=== PATIENT | female | born 1950 | race Two or more races ===

== ENCOUNTER 2017-07-14 09:01 | Outpatient (CLI) | payer OTHER ==
[~2017-07-14 09:01] MED LIST: DICLOFENAC POTA50 MG PO; MAXIMUM D310000 UNIT PO; SYNTHROID137 MCG; SYNTHROID137 MCG PO; VITAMINA D3; ZOCOR20 MG
== END 2017-07-14 14:42 | disposition home or self-care (01) ==
LOC: SONOGRAMA 09:01 → MAMO-SONO 09:15 → SONOGRAMA 14:42
DX: E03.8 Other specified hypothyroidism (principal); E07.89 Other specified disorders of thyroid

== ENCOUNTER 2017-07-28 07:19 | Outpatient (CLI) | payer OTHER | END 2017-07-28 07:25 | disposition home or self-care (01) | LOC: LAB 07:19 | DX: E03.8 Other specified hypothyroidism (principal); E11.65 Type 2 diabetes mellitus with hyperglycemia; D68.8 Other specified coagulation defects; E55.9 Vitamin D deficiency, unspecified; D64.89 Other specified anemias ==

== ENCOUNTER 2018-01-12 07:43 | Outpatient (CLI) | payer OTHER | END 2018-01-12 07:50 | disposition home or self-care (01) | LOC: LAB 07:43 | DX: E11.65 Type 2 diabetes mellitus with hyperglycemia (principal); D68.8 Other specified coagulation defects; D64.89 Other specified anemias; E78.2 Mixed hyperlipidemia; E03.8 Other specified hypothyroidism ==

== ENCOUNTER 2018-06-14 13:32 | Outpatient (CLI) | payer OTHER | END 2018-06-14 14:31 | disposition home or self-care (01) | LOC: NUCLEAR 13:32 | DX: M81.0 Age-related osteoporosis without current pathological fracture (principal) ==

== ENCOUNTER 2018-08-30 07:32 | Outpatient (CLI) | payer OTHER | END 2018-08-30 07:34 | disposition home or self-care (01) | LOC: MAMO-SONO 07:32 | DX: Z12.31 Encounter for screening mammogram for malignant neoplasm of breast (principal); Z87.898 Personal history of other specified conditions; N64.89 Other specified disorders of breast; J45.998 Other asthma ==

== ENCOUNTER 2019-03-24 11:03 | Outpatient (CLI) | payer OTHER | END 2019-03-24 11:06 | disposition home or self-care (01) | LOC: SONOGRAMA 11:03 | DX: E03.8 Other specified hypothyroidism (principal); E04.2 Nontoxic multinodular goiter ==

== ENCOUNTER 2019-12-12 07:41 | Outpatient (CLI) | payer OTHER | END 2019-12-12 07:48 | disposition home or self-care (01) | LOC: SONOGRAMA 07:41 → MAMO-SONO 08:15 | PROVIDERS: ATTEND Specialist | DX: K75.81 Nonalcoholic steatohepatitis (NASH) (principal) ==

== ENCOUNTER 2019-12-21 17:04 | Inpatient (IN) | payer OTHER ==
[~2019-12-21] VITALS: Ht 154.9 cm; Wt 65.8 kg
[2019-12-21] MEDS ORDERED: LEVOTHYROXINE112 MCG PO (17:36)
== END 2019-12-26 16:40 | disposition home or self-care (01) | DRG 439 ==
LOC: ER 17:04 → SEC-K 23:25 → SURG 23:25
PROVIDERS: ADMIT Specialist; ATTEND Specialist
PROC: BW21ZZZ Computerized Tomography (CT Scan) of Abdomen and Pelvis (ICD-10-PCS; principal; 2019-12-21)
PROC: BT43ZZZ Ultrasonography of Bilateral Kidneys (ICD-10-PCS; 2019-12-21)
PROC: BF35ZZZ Magnetic Resonance Imaging (MRI) of Liver (ICD-10-PCS; 2019-12-23)
PROC: 4A033R1 Measurement of Arterial Saturation, Peripheral, Percutaneous Approach (ICD-10-PCS; 2019-12-23)
DX: K85.80 Other acute pancreatitis without necrosis or infection (principal); B37.41 Candidal cystitis and urethritis; E03.8 Other specified hypothyroidism; D51.0 Vitamin B12 deficiency anemia due to intrinsic factor deficiency; R31.9 Hematuria, unspecified; R16.2 Hepatomegaly with splenomegaly, not elsewhere classified; Z03.818 Encounter for observation for suspected exposure to other biological agents ruled out

== ENCOUNTER 2020-01-01 08:14 | Outpatient (CLI) | payer OTHER ==
[~2020-01-01 08:14] MED LIST changes: +LEVOTHYROXINE112 MCG PO
== END 2020-01-01 08:33 | disposition home or self-care (01) ==
LOC: LAB 08:14
PROVIDERS: ATTEND Specialist
DX: D68.8 Other specified coagulation defects (principal); K85.90 Acute pancreatitis without necrosis or infection, unspecified; N39.0 Urinary tract infection, site not specified; B15.9 Hepatitis A without hepatic coma; B16.1 Acute hepatitis B with delta-agent without hepatic coma; K75.81 Nonalcoholic steatohepatitis (NASH); B20 Human immunodeficiency virus [HIV] disease; D68.62 Lupus anticoagulant syndrome; D64.89 Other specified anemias

== ENCOUNTER 2020-03-08 07:14 | Outpatient (CLI) | payer OTHER | END 2020-03-08 08:09 | disposition home or self-care (01) | LOC: LAB 07:14 | PROVIDERS: ATTEND Specialist | DX: M32.8 Other forms of systemic lupus erythematosus (principal); I01.1 Acute rheumatic endocarditis; K75.81 Nonalcoholic steatohepatitis (NASH) ==

== ENCOUNTER → 2020-03-21 07:43 | Outpatient (CLI) | payer OTHER | END | disposition home or self-care (01) | LOC: LAB 07:43 | PROVIDERS: ATTEND Internal Medicine Gastroenterology | DX: K85.80 Other acute pancreatitis without necrosis or infection (principal); R10.13 Epigastric pain; R11.0 Nausea ==

== ENCOUNTER 2020-06-11 07:28 | Outpatient (CLI) | payer OTHER | END 2020-06-11 15:00 | disposition home or self-care (01) | LOC: LAB 07:28 | PROVIDERS: ATTEND Specialist | DX: E03.8 Other specified hypothyroidism (principal); D64.89 Other specified anemias; N39.0 Urinary tract infection, site not specified; K85.90 Acute pancreatitis without necrosis or infection, unspecified; E11.65 Type 2 diabetes mellitus with hyperglycemia; E55.9 Vitamin D deficiency, unspecified; D51.0 Vitamin B12 deficiency anemia due to intrinsic factor deficiency ==

== ENCOUNTER 2020-07-18 12:23 | Emergency (ER) | payer OTHER ==
[~2020-07-18] VITALS: Ht 154.9 cm; Wt 68.0 kg
[2020-07-18] MEDS ORDERED: CELEBREX200MG PO (15:16)
== END 2020-07-18 15:33 | disposition home or self-care (01) ==
LOC: ER 12:23
DX: M25.542 Pain in joints of left hand (principal); M25.541 Pain in joints of right hand

== ENCOUNTER 2020-09-05 07:20 | Outpatient (CLI) | payer OTHER ==
[~2020-09-05 07:20] MED LIST changes: +CELEBREX200MG PO
== END 2020-09-05 07:24 | disposition home or self-care (01) ==
LOC: LAB 07:20
PROVIDERS: ATTEND Specialist
DX: M32.8 Other forms of systemic lupus erythematosus (principal)

== ENCOUNTER 2020-09-13 13:09 | Outpatient (CLI) | payer OTHER | END 2020-09-13 13:10 | disposition home or self-care (01) | LOC: NUCLEAR 13:09 | PROVIDERS: ATTEND Specialist | DX: M81.0 Age-related osteoporosis without current pathological fracture (principal) ==

== ENCOUNTER → 2020-10-02 | Outpatient (CLI) | payer OTHER | END | disposition home or self-care (01) | LOC: SONOGRAMA 13:30 → MAMO-SONO 10-09 13:45 | DX: M25.50 Pain in unspecified joint (principal); M85.89 Other specified disorders of bone density and structure, multiple sites; M06.4 Inflammatory polyarthropathy; Z79.899 Other long term (current) drug therapy; E55.9 Vitamin D deficiency, unspecified; M54.5 Low back pain ==

== ENCOUNTER → 2020-10-25 06:49 | Outpatient (CLI) | payer OTHER | END | disposition home or self-care (01) | LOC: LAB 06:49 | PROVIDERS: ATTEND Internal Medicine Rheumatology | DX: M06.4 Inflammatory polyarthropathy (principal); M25.50 Pain in unspecified joint; M85.89 Other specified disorders of bone density and structure, multiple sites; Z79.899 Other long term (current) drug therapy; E55.9 Vitamin D deficiency, unspecified ==

== ENCOUNTER 2020-12-13 07:14 | Outpatient (CLI) | payer OTHER | END 2020-12-13 15:00 | disposition home or self-care (01) | LOC: LAB 07:14 | PROVIDERS: ATTEND Specialist | DX: E03.8 Other specified hypothyroidism (principal); E11.65 Type 2 diabetes mellitus with hyperglycemia; N39.0 Urinary tract infection, site not specified; E78.2 Mixed hyperlipidemia; D64.89 Other specified anemias; D51.0 Vitamin B12 deficiency anemia due to intrinsic factor deficiency ==

== ENCOUNTER 2020-12-17 10:32 | Outpatient (CLI) | payer OTHER | END 2020-12-17 10:40 | disposition home or self-care (01) | LOC: MAMO-SONO 10:32 | PROVIDERS: ATTEND Specialist | DX: E04.1 Nontoxic single thyroid nodule (principal); E03.8 Other specified hypothyroidism ==

== ENCOUNTER 2021-01-07 07:31 | Outpatient (CLI) | payer OTHER | END 2021-01-07 07:49 | disposition home or self-care (01) | LOC: LAB 07:31 | PROVIDERS: ATTEND Internal Medicine Rheumatology | DX: M32.19 Other organ or system involvement in systemic lupus erythematosus (principal); M35.89 Other specified systemic involvement of connective tissue; I25.10 Atherosclerotic heart disease of native coronary artery without angina pectoris; M06.8A Other specified rheumatoid arthritis, other specified site ==

== ENCOUNTER → 2021-03-12 06:56 | Outpatient (CLI) | payer OTHER | END | disposition home or self-care (01) | LOC: LAB 06:56 | PROVIDERS: ATTEND Specialist | DX: E11.21 Type 2 diabetes mellitus with diabetic nephropathy (principal); E11.65 Type 2 diabetes mellitus with hyperglycemia ==

== ENCOUNTER 2021-04-08 07:46 | Outpatient (CLI) | payer OTHER | END 2021-04-08 07:47 | disposition home or self-care (01) | LOC: LAB 07:46 | PROVIDERS: ATTEND Internal Medicine Rheumatology | DX: M32.19 Other organ or system involvement in systemic lupus erythematosus (principal) ==

== ENCOUNTER 2021-05-15 07:10 | Outpatient (CLI) | payer OTHER | END 2021-05-15 07:21 | disposition home or self-care (01) | LOC: LAB 07:10 | PROVIDERS: ATTEND Internal Medicine Rheumatology | DX: K74.3 Primary biliary cirrhosis (principal); K75.4 Autoimmune hepatitis ==

== ENCOUNTER 2021-05-15 07:36 | Outpatient (CLI) | payer OTHER | END 2021-05-15 07:41 | disposition home or self-care (01) | LOC: RAD 07:36 | PROVIDERS: ATTEND Internal Medicine Rheumatology | DX: I10 Essential (primary) hypertension (principal); M32.8 Other forms of systemic lupus erythematosus ==

== ENCOUNTER 2021-06-16 07:11 | Outpatient (CLI) | payer OTHER | END 2021-06-16 09:20 | disposition home or self-care (01) | LOC: LAB 07:11 | PROVIDERS: ATTEND Specialist | DX: E03.9 Hypothyroidism, unspecified (principal); N39.9 Disorder of urinary system, unspecified; E78.2 Mixed hyperlipidemia; E11.65 Type 2 diabetes mellitus with hyperglycemia; Z12.11 Encounter for screening for malignant neoplasm of colon; D64.9 Anemia, unspecified; J45.998 Other asthma; K75.9 Inflammatory liver disease, unspecified ==

== ENCOUNTER 2021-06-17 13:52 | Outpatient (CLI) | payer OTHER | END 2021-06-17 13:53 | disposition home or self-care (01) | LOC: LAB 13:52 | PROVIDERS: ATTEND Specialist | DX: E03.9 Hypothyroidism, unspecified (principal); N39.9 Disorder of urinary system, unspecified; E78.2 Mixed hyperlipidemia; E11.65 Type 2 diabetes mellitus with hyperglycemia; Z12.11 Encounter for screening for malignant neoplasm of colon; D64.9 Anemia, unspecified; J45.998 Other asthma ==

== ENCOUNTER 2021-08-01 06:55 | Outpatient (CLI) | payer OTHER | END 2021-08-01 07:02 | disposition home or self-care (01) | LOC: LAB 06:55 | PROVIDERS: ATTEND Internal Medicine Rheumatology | DX: M32.19 Other organ or system involvement in systemic lupus erythematosus (principal) ==

== ENCOUNTER 2021-09-16 07:06 | Outpatient (CLI) | payer OTHER | END 2021-09-16 07:15 | disposition home or self-care (01) | LOC: LAB 07:06 | PROVIDERS: ATTEND Specialist | DX: C25.3 Malignant neoplasm of pancreatic duct (principal); M32.10 Systemic lupus erythematosus, organ or system involvement unspecified; K75.81 Nonalcoholic steatohepatitis (NASH); N25.81 Secondary hyperparathyroidism of renal origin ==

== ENCOUNTER 2021-11-05 07:05 | Outpatient (CLI) | payer OTHER | END 2021-11-05 15:17 | disposition home or self-care (01) | LOC: LAB 07:05 | PROVIDERS: ATTEND Internal Medicine Rheumatology | DX: M06.9 Rheumatoid arthritis, unspecified (principal); M32.19 Other organ or system involvement in systemic lupus erythematosus; D68.61 Antiphospholipid syndrome; M35.00 Sjogren syndrome, unspecified ==

== ENCOUNTER 2021-12-23 07:20 | Outpatient (CLI) | payer OTHER | END 2021-12-23 07:21 | disposition home or self-care (01) | LOC: LAB 07:20 | DX: E03.8 Other specified hypothyroidism (principal); E11.69 Type 2 diabetes mellitus with other specified complication; E11.21 Type 2 diabetes mellitus with diabetic nephropathy; N39.9 Disorder of urinary system, unspecified; D64.89 Other specified anemias; E11.65 Type 2 diabetes mellitus with hyperglycemia; Z13.220 Encounter for screening for lipoid disorders ==

== ENCOUNTER 2021-12-25 07:45 | Outpatient (CLI) | payer OTHER | END 2021-12-25 07:49 | disposition home or self-care (01) | LOC: LAB 07:45 | PROVIDERS: ATTEND Specialist | DX: E11.65 Type 2 diabetes mellitus with hyperglycemia (principal); E11.21 Type 2 diabetes mellitus with diabetic nephropathy ==

== ENCOUNTER 2022-02-24 07:49 | Outpatient (CLI) | payer OTHER | END 2022-02-24 07:50 | disposition home or self-care (01) | LOC: LAB 07:49 | PROVIDERS: ATTEND Internal Medicine Rheumatology | DX: M32.19 Other organ or system involvement in systemic lupus erythematosus (principal) ==

== ENCOUNTER 2022-03-23 07:27 | Outpatient (CLI) | payer OTHER | END 2022-03-23 07:28 | disposition home or self-care (01) | LOC: LAB 07:27 | PROVIDERS: ATTEND Specialist | DX: E11.69 Type 2 diabetes mellitus with other specified complication (principal); M00.80 Arthritis due to other bacteria, unspecified joint; E03.8 Other specified hypothyroidism; Z13.220 Encounter for screening for lipoid disorders; E11.21 Type 2 diabetes mellitus with diabetic nephropathy ==

== ENCOUNTER 2022-04-06 10:22 | Emergency (ER) | payer OTHER ==
[~2022-04-06] VITALS: Ht 162.6 cm; Wt 59.0 kg
[2022-04-06] MEDS ORDERED: GLIMEPIRIDE4 MG (10:40)
[2022-04-06] MEDS ORDERED: MEDROL4 MG PO (10:41)
== END 2022-04-06 14:24 | disposition home or self-care (01) ==
LOC: ER 10:22
DX: K52.9 Noninfective gastroenteritis and colitis, unspecified (principal); E11.9 Type 2 diabetes mellitus without complications; Z79.84 Long term (current) use of oral hypoglycemic drugs; J45.909 Unspecified asthma, uncomplicated; E03.9 Hypothyroidism, unspecified; I10 Essential (primary) hypertension

== ENCOUNTER → 2022-04-19 | Emergency (ER) | payer OTHER ==
[~2022-04-19] VITALS: Ht 157.5 cm; Wt 68.0 kg
[~2022-04-19] MED LIST changes: +GLIMEPIRIDE4 MG; +MEDROL4 MG PO
== END | disposition left against medical advice (07) ==
LOC: ER 13:22
DX: Z53.21 Procedure and treatment not carried out due to patient leaving prior to being seen by health care provider (principal)

== ENCOUNTER 2022-05-26 07:33 | Outpatient (CLI) | payer OTHER | END 2022-05-26 07:40 | disposition home or self-care (01) | LOC: LAB 07:33 | DX: M32.19 Other organ or system involvement in systemic lupus erythematosus (principal) ==

== ENCOUNTER → 2022-06-22 07:11 | Outpatient (CLI) | payer OTHER | END | disposition home or self-care (01) | LOC: LAB 07:11 | PROVIDERS: ATTEND Specialist | DX: R07.89 Other chest pain (principal); M00.80 Arthritis due to other bacteria, unspecified joint; E11.21 Type 2 diabetes mellitus with diabetic nephropathy; N25.81 Secondary hyperparathyroidism of renal origin; E03.8 Other specified hypothyroidism; Z13.220 Encounter for screening for lipoid disorders; N39.9 Disorder of urinary system, unspecified; E11.69 Type 2 diabetes mellitus with other specified complication; D64.89 Other specified anemias ==

== ENCOUNTER 2022-06-22 07:49 | Outpatient (CLI) | payer OTHER | END 2022-06-22 07:53 | disposition home or self-care (01) | LOC: RAD 07:49 | PROVIDERS: ATTEND Specialist | DX: J45.998 Other asthma (principal) ==

== ENCOUNTER 2022-10-09 06:59 | Outpatient (CLI) | payer OTHER | END 2022-10-09 07:05 | disposition home or self-care (01) | LOC: LAB 06:59 | PROVIDERS: ATTEND Specialist | DX: M00.80 Arthritis due to other bacteria, unspecified joint (principal); D64.89 Other specified anemias; Z13.220 Encounter for screening for lipoid disorders; E11.21 Type 2 diabetes mellitus with diabetic nephropathy; E55.9 Vitamin D deficiency, unspecified; E11.69 Type 2 diabetes mellitus with other specified complication; N39.9 Disorder of urinary system, unspecified; N39.0 Urinary tract infection, site not specified ==

== ENCOUNTER → 2023-01-12 07:31 | Outpatient (CLI) | payer OTHER | END | disposition home or self-care (01) | LOC: LAB 07:31 | PROVIDERS: ATTEND Internal Medicine Rheumatology | DX: M32.19 Other organ or system involvement in systemic lupus erythematosus (principal) ==

== ENCOUNTER 2023-04-06 07:43 | Outpatient (CLI) | payer OTHER ==
[2023-04-06 08:55] LABS: HEMATOCRIT 37.3 % (36.0-45.00); HEMOGLOBIN 12.6 g/dL (12.0-15.00); MEAN CELL VOLUME 90.3 fL (80.00-100.00); MEAN CORPUSCULAR HEMOGLOBIN 30.5 pg (27.00-32.0); MEAN CORPUSCULAR HGB CONC 33.8 g/dl (32.0-36.0); PLATELET COUNT 195 K/uL (150-450); RED BLOOD COUNT 4.14 M/uL (4.00-6.00); RED CELL DISTRIBUTION WIDTH 13.4 % (11.5-14.5)
[2023-04-06 09:18] LABS: PH,URINE 6.5 (5.0-8.0); URINE APPEARANCE Clear; URINE BILIRRUBIN Negative (NEGATIVE); URINE BLOOD Negative; URINE COLOR Yellow; URINE GLUCOSE Negative (NEGATIVE); URINE LEUKOCYTE Trace; URINE NITRATE Negative; URINE PROTEIN Negative (NEGATIVE); URINE UROBILINOGEN 0.2 E.U./dl
[2023-04-06 09:24] LABS: URINE BACTERIA 89.4 uL (0.0-1933); URINE EPITHELIAL CELLS 4.9 uL (0.0-38.8); URINE RBC 5.1 uL (0.0-20.8)
[2023-04-06 09:31] LABS: ALBUMIN 3.8 gm/dL (3.4-5.0); BILIRUBIN TOTAL 0.49 mg/dL (0.3-1.2); CALCIUM 9.5 mg/dL (8.5-10.1); CREATININE SERUM 0.6 mg/dL (0.55-1.02); GFR 98.55; GLOBULINA 4.1 G/DL (2.4-3.5); POTASSIUM 4.22 mEq/L (3.5-5.1); TOTAL PROTEIN 7.9 gm/dL (6.4-8.2)
[2023-04-06 09:49] LABS: URINE WBC 1.3 uL (0.0-23.2)
[2023-04-07 10:08] LABS: COMPLEMENT C3 145 mg/dL (82-167); COMPLEMENT C4 19 mg/dL (12-38)
[2023-04-07 16:11] LABS: DNA AB DOUBLE STRABDED 23 IU/mL (0-9)
== END 2023-04-06 07:44 | disposition home or self-care (01) ==
LOC: LAB 07:43
PROVIDERS: ATTEND Internal Medicine Rheumatology
DX: M32.19 Other organ or system involvement in systemic lupus erythematosus (principal)

== ENCOUNTER → 2023-05-12 07:15 | Outpatient (CLI) | payer OTHER ==
[2023-05-12 08:06] LABS: PH,URINE 5.5 (5.0-8.0); URINE APPEARANCE Clear; URINE BILIRRUBIN Negative (NEGATIVE); URINE BLOOD Negative; URINE COLOR Yellow; URINE GLUCOSE Negative (NEGATIVE); URINE LEUKOCYTE Small; URINE NITRATE Negative; URINE PROTEIN Negative (NEGATIVE); URINE UROBILINOGEN 0.2 E.U./dl
[2023-05-12 08:10] LABS: URINE BACTERIA 323.7 uL (0.0-1933); URINE EPITHELIAL CELLS 11.4 uL (0.0-38.8); URINE RBC 5.3 uL (0.0-20.8); URINE WBC 11.1 uL (0.0-23.2)
[2023-05-12 08:14] LABS: HEMATOCRIT 37.1 % (36.0-45.00); HEMOGLOBIN 12.6 g/dL (12.0-15.00); MEAN CELL VOLUME 90.7 fL (80.00-100.00); MEAN CORPUSCULAR HEMOGLOBIN 30.8 pg (27.00-32.0); MEAN CORPUSCULAR HGB CONC 33.9 g/dl (32.0-36.0); PLATELET COUNT 178 K/uL (150-450); RED BLOOD COUNT 4.08 M/uL (4.00-6.00); RED CELL DISTRIBUTION WIDTH 13.8 % (11.5-14.5)
[2023-05-12 08:26] LABS: CREATININE URINE RANDOM 97.5 MG/DL (30-125)
[2023-05-12 09:00] LABS: ALKALINE PHOSPHATASE 69 U/L (50-136); ALT/SGPT 38 U/L (12-78); ANION GAP 9 (10.0-20.0); AST/SGOT 20 U/L (15-37); BILIRUBIN TOTAL 0.48 mg/dL (0.3-1.2); BLOOD UREA NITROGEN 16 mg/dL (7-18); BUN CREA RATIO 23 (7.0-25.0); CALCIUM 9.3 mg/dL (8.5-10.1); CARBON DIOXIDE 31 mEq/L (21-32); CHLORIDE 104 mmol/L (98-107); CHOL HDL RATIO 4.2 (0-5.0); CHOLESTEROL 189 mg/dL (0-200); CREATININE SERUM 0.69 mg/dL (0.55-1.02); FREE TRIODOTIRONINE 2.51 pg/ml (2.18-3.98); GFR 83.87; GLOBULINA 3.8 G/DL (2.4-3.5); GLUCOSE FASTING 94 mg/dL (65-100); HDL 45 mg/dl (40-60); LDL 116 mg/dl (0-130); OSMOLALITY SERUM 280 MOSM/KG (275-295); POTASSIUM 3.72 mEq/L (3.5-5.1); SODIUM 140 mmol/L (136-145); T4 FREE 1.14 NG/ML (0.76-1.46); TOTAL PROTEIN 7.8 gm/dL (6.4-8.2); TRIGLYCERIDES 142 mg/dL (0-150); VLDL 28 (0-39)
[2023-05-12 09:11] LABS: C-REACTIVE PROTEIN < 0.29 MG/DL (0.00-0.29)
== END | disposition home or self-care (01) ==
LOC: LAB 07:15
PROVIDERS: ATTEND Specialist
DX: N25.81 Secondary hyperparathyroidism of renal origin (principal); Z13.220 Encounter for screening for lipoid disorders; E11.69 Type 2 diabetes mellitus with other specified complication; M00.08 Staphylococcal arthritis, vertebrae; E03.8 Other specified hypothyroidism; N39.9 Disorder of urinary system, unspecified; E11.21 Type 2 diabetes mellitus with diabetic nephropathy; D64.89 Other specified anemias; M32.19 Other organ or system involvement in systemic lupus erythematosus

== ENCOUNTER 2023-11-23 06:46 | Outpatient (CLI) | payer OTHER ==
[2023-11-23 07:40] LABS: URINE APPEARANCE Clear; URINE BILIRRUBIN Negative (NEGATIVE); URINE BLOOD Negative; URINE COLOR Yellow; URINE GLUCOSE Negative (NEGATIVE); URINE LEUKOCYTE Trace; URINE NITRATE Negative; URINE PROTEIN Negative (NEGATIVE); URINE UROBILINOGEN 0.2 E.U./dl
[2023-11-23 07:42] LABS: URINE BACTERIA 22.6 uL (0.0-1933); URINE EPITHELIAL CELLS 4.4 uL (0.0-38.8); URINE RBC 2.8 uL (0.0-20.8); URINE WBC 7.7 uL (0.0-23.2)
[2023-11-23 07:51] LABS: HEMATOCRIT 37.6 % (36.0-45.00); HEMOGLOBIN 12.5 g/dL (12.0-15.00); MEAN CELL VOLUME 89.5 fL (80.00-100.00); MEAN CORPUSCULAR HEMOGLOBIN 29.8 pg (27.00-32.0); MEAN CORPUSCULAR HGB CONC 33.3 g/dl (32.0-36.0); PLATELET COUNT 170 K/uL (150-450)
[2023-11-23 08:14] LABS: ob NEGATIVE (NEGATIVE)
[2023-11-23 08:44] LABS: ALBUMIN 3.9 gm/dL (3.4-5.0); ALKALINE PHOSPHATASE 82 U/L (50-136); ALT/SGPT 30 U/L (12-78); ANION GAP 9 (10.0-20.0); AST/SGOT 19 U/L (15-37); BILIRUBIN TOTAL 0.55 mg/dL (0.3-1.2); BLOOD UREA NITROGEN 12 mg/dL (7-18); BUN CREA RATIO 19 (7.0-25.0); CALCIUM 8.9 mg/dL (8.5-10.1); CARBON DIOXIDE 30 mEq/L (21-32); CHLORIDE 103 mmol/L (98-107); CHOL HDL RATIO 3.3 (0-5.0); CHOLESTEROL 153 mg/dL (0-200); CREATININE SERUM 0.63 mg/dL (0.55-1.02); GFR 93.15; GLOBULINA 3.9 G/DL (2.4-3.5); GLUCOSE FASTING 120 mg/dL (65-100); HDL 47 mg/dl (40-60); LDL 78 mg/dl (0-130); OSMOLALITY SERUM 278 MOSM/KG (275-295); POTASSIUM 3.46 mEq/L (3.5-5.1); SODIUM 139 mmol/L (136-145); TOTAL PROTEIN 7.8 gm/dL (6.4-8.2); TRIGLYCERIDES 142 mg/dL (0-150); VLDL 28 (0-39)
[2023-11-23 08:55] LABS: C-REACTIVE PROTEIN < 0.29 MG/DL (0.00-0.29)
[2023-11-24 11:12] LABS: COMPLEMENT C3 129 mg/dL (82-167); COMPLEMENT C4 14 mg/dL (12-38)
== END 2023-11-23 06:47 | disposition home or self-care (01) ==
LOC: LAB 06:46
PROVIDERS: ATTEND Specialist
DX: R19.5 Other fecal abnormalities (principal); N39.9 Disorder of urinary system, unspecified; N25.81 Secondary hyperparathyroidism of renal origin; D64.89 Other specified anemias; E11.21 Type 2 diabetes mellitus with diabetic nephropathy; E11.69 Type 2 diabetes mellitus with other specified complication; E03.8 Other specified hypothyroidism; Z13.220 Encounter for screening for lipoid disorders; M00.80 Arthritis due to other bacteria, unspecified joint; M33.19 Other dermatomyositis with other organ involvement

== ENCOUNTER → 2024-02-25 07:01 | Outpatient (CLI) | payer OTHER ==
[2024-02-25 08:18] LABS: HEMATOCRIT 37.7 % (36.0-45.00); HEMOGLOBIN 12.6 g/dL (12.0-15.00); MEAN CELL VOLUME 89.8 fL (80.00-100.00); MEAN CORPUSCULAR HEMOGLOBIN 30.1 pg (27.00-32.0); MEAN CORPUSCULAR HGB CONC 33.5 g/dl (32.0-36.0); PLATELET COUNT 164 K/uL (150-450); RED CELL DISTRIBUTION WIDTH 13.6 % (11.5-14.5)
[2024-02-25 08:52] LABS: PH,URINE 5.5 (5.0-8.0); URINE APPEARANCE Cloudy; URINE BILIRRUBIN Negative (NEGATIVE); URINE BLOOD Negative; URINE COLOR Yellow; URINE GLUCOSE Negative (NEGATIVE); URINE KETONE Trace (NEGATIVE); URINE LEUKOCYTE Moderate; URINE NITRATE Negative; URINE PROTEIN Trace (NEGATIVE); URINE UROBILINOGEN 0.2 E.U./dl
[2024-02-25 08:56] LABS: URINE BACTERIA 133.5 uL (0.0-1933); URINE EPITHELIAL CELLS 26.7 uL (0.0-38.8); URINE RBC 15.1 uL (0.0-20.8); URINE WBC 13.6 uL (0.0-23.2)
[2024-02-25 10:06] LABS: ALKALINE PHOSPHATASE 82 U/L (50-136); ALT/SGPT 37 U/L (12-78); ANION GAP 8 (10.0-20.0); AST/SGOT 21 U/L (15-37); BILIRUBIN TOTAL 0.55 mg/dL (0.3-1.2); BLOOD UREA NITROGEN 21 mg/dL (7-18); BUN CREA RATIO 34 (7.0-25.0); CALCIUM 9.2 mg/dL (8.5-10.1); CARBON DIOXIDE 31 mEq/L (21-32); CHLORIDE 105 mmol/L (98-107); CHOL HDL RATIO 2.6 (0-5.0); CHOLESTEROL 150 mg/dL (0-200); CREATININE SERUM 0.61 mg/dL (0.55-1.02); FREE TRIODOTIRONINE 1.74 pg/ml (2.18-3.98); GFR 96.41; GLOBULINA 3.8 G/DL (2.4-3.5); GLUCOSE FASTING 88 mg/dL (65-100); HDL 57 mg/dl (40-60); LDL 70 mg/dl (0-130); OSMOLALITY SERUM 282 MOSM/KG (275-295); SODIUM 140 mmol/L (136-145); TOTAL PROTEIN 7.8 gm/dL (6.4-8.2); TRIGLYCERIDES 113 mg/dL (0-150); VLDL 22 (0-39)
[2024-02-25 10:27] LABS: C-REACTIVE PROTEIN < 0.29 MG/DL (0.00-0.29)
== END | disposition home or self-care (01) ==
LOC: LAB 07:01
PROVIDERS: ATTEND Specialist
DX: E11.69 Type 2 diabetes mellitus with other specified complication (principal); E03.8 Other specified hypothyroidism; E11.21 Type 2 diabetes mellitus with diabetic nephropathy; M00.80 Arthritis due to other bacteria, unspecified joint; N39.9 Disorder of urinary system, unspecified; N25.81 Secondary hyperparathyroidism of renal origin; Z13.220 Encounter for screening for lipoid disorders; D64.89 Other specified anemias

== ENCOUNTER → 2024-04-11 07:28 | Outpatient (CLI) | payer OTHER ==
[2024-04-11 08:29] LABS: HEMATOCRIT 37.3 % (36.0-45.00); HEMOGLOBIN 12.6 g/dL (12.0-15.00); MEAN CELL VOLUME 88.9 fL (80.00-100.00); MEAN CORPUSCULAR HEMOGLOBIN 30.1 pg (27.00-32.0); MEAN CORPUSCULAR HGB CONC 33.9 g/dl (32.0-36.0); PLATELET COUNT 156 K/uL (150-450); RED BLOOD COUNT 4.19 M/uL (4.00-6.00); RED CELL DISTRIBUTION WIDTH 14.2 % (11.5-14.5)
[2024-04-11 08:38] LABS: PH,URINE 5.5 (5.0-8.0); URINE APPEARANCE Clear; URINE BILIRRUBIN Negative (NEGATIVE); URINE BLOOD Negative; URINE COLOR Yellow; URINE GLUCOSE Negative (NEGATIVE); URINE KETONE Negative (NEGATIVE); URINE LEUKOCYTE Small; URINE NITRATE Negative; URINE PROTEIN Negative (NEGATIVE); URINE UROBILINOGEN 0.2 E.U./dl
[2024-04-11 08:45] LABS: URINE BACTERIA 512.7 uL (0.0-1933); URINE CAST 0.14 uL (0.0-1.40); URINE EPITHELIAL CELLS 29.5 uL (0.0-38.8); URINE RBC 2.5 uL (0.0-20.8)
[2024-04-11 09:34] LABS: ALBUMIN 3.9 gm/dL (3.4-5.0); BILIRUBIN TOTAL 0.54 mg/dL (0.3-1.2); CALCIUM 9.1 mg/dL (8.5-10.1); CREATININE SERUM 0.62 mg/dL (0.55-1.02); GFR 94.62; GLOBULINA 3.6 G/DL (2.4-3.5); POTASSIUM 3.35 mEq/L (3.5-5.1); TOTAL PROTEIN 7.5 gm/dL (6.4-8.2)
== END | disposition home or self-care (01) ==
LOC: LAB 07:28
PROVIDERS: ATTEND Internal Medicine Rheumatology
DX: M32.19 Other organ or system involvement in systemic lupus erythematosus (principal)

== ENCOUNTER → 2024-05-25 08:06 | Outpatient (CLI) | payer OTHER ==
[2024-05-26 16:08] LABS: CYCLIC CITRULLINE PEPTIDE 8 units (0-19)
== END | disposition home or self-care (01) ==
LOC: LAB 08:06
PROVIDERS: ATTEND Specialist
DX: N39.0 Urinary tract infection, site not specified (principal); M35.3 Polymyalgia rheumatica

== ENCOUNTER 2024-08-01 07:07 | Outpatient (CLI) | payer OTHER ==
[2024-08-01 08:11] LABS: URINE APPEARANCE Clear; URINE BILIRRUBIN Negative (NEGATIVE); URINE BLOOD Negative; URINE COLOR Yellow; URINE GLUCOSE Negative (NEGATIVE); URINE KETONE Negative (NEGATIVE); URINE LEUKOCYTE Trace; URINE NITRATE Negative; URINE PROTEIN Negative (NEGATIVE)
[2024-08-01 08:13] LABS: HEMATOCRIT 36.5 % (36.0-45.00); HEMOGLOBIN 12.5 g/dL (12.0-15.00); MEAN CELL VOLUME 87.7 fL (80.00-100.00); MEAN CORPUSCULAR HGB CONC 34.2 g/dl (32.0-36.0); PLATELET COUNT 182 K/uL (150-450); RED BLOOD COUNT 4.17 M/uL (4.00-6.00); RED CELL DISTRIBUTION WIDTH 14.2 % (11.5-14.5); URINE BACTERIA 67.2 uL (0.0-1933); URINE EPITHELIAL CELLS 16.4 uL (0.0-38.8); URINE RBC 5.1 uL (0.0-20.8); URINE WBC 10.2 uL (0.0-23.2)
[2024-08-01 08:21] LABS: CREATININE URINE RANDOM 59.8 MG/DL (30-125)
[2024-08-01 08:53] LABS: ALBUMIN 3.8 gm/dL (3.4-5.0); BILIRUBIN TOTAL 0.63 mg/dL (0.3-1.2); CALCIUM 9.3 mg/dL (8.5-10.1); CREATININE SERUM 0.64 mg/dL (0.55-1.02); GFR 91.22; GLOBULINA 3.8 G/DL (2.4-3.5); POTASSIUM 3.42 mEq/L (3.5-5.1); TOTAL PROTEIN 7.6 gm/dL (6.4-8.2)
[2024-08-03 09:06] LABS: COMPLEMENT C3 138 mg/dL (82-167); COMPLEMENT C4 14 mg/dL (12-38)
[2024-08-03 11:10] LABS: DNA AB DOUBLE STRABDED 6 IU/mL (0-9)
== END 2024-08-01 07:08 | disposition home or self-care (01) ==
LOC: LAB 07:07
PROVIDERS: ATTEND Internal Medicine Rheumatology
DX: M32.19 Other organ or system involvement in systemic lupus erythematosus (principal)

== ENCOUNTER 2024-09-11 06:45 | Outpatient (CLI) | payer OTHER ==
[2024-09-11 07:48] LABS: HEMATOCRIT 36.9 % (34.1-44.9); HEMOGLOBIN 12.1 g/dL (11.2-15.7); LYMPH # 1.41 (1.18-3.74); LYMPH % 38.7 % (19.3-53.1); MEAN CORPUSCULAR HEMOGLOBIN 29.1 pg (25.6-32.2); NEUT # 1.83 (1.56-6.13); NEUT % 50.3 % (34.0-71.1); PLATELET COUNT 206 K/uL (163-369); RED BLOOD COUNT 4.16 M/uL (3.93-5.22); RED CELL DISTRIBUTION WIDTH 13.2 % (11.6-14.4)
[2024-09-11 08:34] LABS: URINE APPEARANCE Cloudy; URINE BILIRRUBIN Negative (NEGATIVE); URINE BLOOD Negative; URINE COLOR Dark Yellow; URINE GLUCOSE Negative (NEGATIVE); URINE KETONE Trace (NEGATIVE); URINE LEUKOCYTE Moderate; URINE NITRATE Negative; URINE PROTEIN Trace (NEGATIVE)
[2024-09-11 08:35] LABS: URINE BACTERIA 937.5 uL (0.0-1933); URINE EPITHELIAL CELLS 149.4 uL (0.0-38.8); URINE RBC 13.5 uL (0.0-20.8); URINE WBC 99.5 uL (0.0-23.2)
[2024-09-11 08:37] LABS: URINE CAST 0.29 uL (0.0-1.40)
[2024-09-11 09:19] LABS: ALBUMIN 3.8 gm/dL (3.4-5.0); BILIRUBIN TOTAL 0.43 mg/dL (0.3-1.2); CALCIUM 8.8 mg/dL (8.5-10.1); CHOL HDL RATIO 4.1 (0-5.0); CREATININE SERUM 0.61 mg/dL (0.55-1.02); FREE TRIODOTIRONINE 2.07 pg/ml (2.18-3.98); GFR 96.41; GLOBULINA 3.7 G/DL (2.4-3.5); POTASSIUM 3.69 mEq/L (3.5-5.1); T4 FREE 1.01 NG/ML (0.76-1.46); TOTAL PROTEIN 7.5 gm/dL (6.4-8.2)
[2024-09-11 09:25] LABS: TSH 4.98 uIU/mL (0.358-3.74)
== END 2024-09-11 06:52 | disposition home or self-care (01) ==
LOC: LAB 06:45
PROVIDERS: ATTEND Specialist
DX: E03.9 Hypothyroidism, unspecified (principal); E11.21 Type 2 diabetes mellitus with diabetic nephropathy; N39.9 Disorder of urinary system, unspecified; E78.2 Mixed hyperlipidemia; E11.65 Type 2 diabetes mellitus with hyperglycemia; D64.9 Anemia, unspecified; N25.81 Secondary hyperparathyroidism of renal origin; E55.9 Vitamin D deficiency, unspecified

== ENCOUNTER 2024-12-04 07:13 | Outpatient (CLI) | payer OTHER ==
[2024-12-04 08:20] LABS: BASO % 0.0 % (0.1-1.2); EOS # 0.00 (0.04-0.54); EOS % 0.0 % (0.7-7.0); LYMPH # 1.26 (1.18-3.74); LYMPH % 34.2 % (19.3-53.1); MEAN PLATELET VOLUME 11.30 fl (9.4-12.4); MONO # 0.40 (0.24-0.82); MONO % 10.9 % (4.7-12.5); NEUT # 2.01 (1.56-6.13); NEUT % 54.6 % (34.0-71.1); RED CELL DISTRIBUTION WIDTH 13.6 % (11.6-14.4)
[2024-12-04 08:38] LABS: URINE APPEARANCE Clear; URINE BILIRRUBIN Negative (NEGATIVE); URINE BLOOD Negative; URINE COLOR Yellow; URINE GLUCOSE Negative (NEGATIVE); URINE KETONE Negative (NEGATIVE); URINE LEUKOCYTE Moderate; URINE NITRATE Negative; URINE PROTEIN Negative (NEGATIVE); URINE UROBILINOGEN 0.2 E.U./dl
[2024-12-04 08:39] LABS: URINE BACTERIA 260.2 uL (0.0-1933); URINE EPITHELIAL CELLS 21.0 uL (0.0-38.8); URINE RBC 2.6 uL (0.0-20.8); URINE WBC 35.4 uL (0.0-23.2)
[2024-12-04 09:20] LABS: CREATININE URINE RANDOM 28.80 MG/DL (30-125)
[2024-12-04 09:24] LABS: URINE CAST 0.00 uL (0.0-1.40)
[2024-12-04 09:33] LABS: ALT/SGPT 37.0 U/L (12-78); AST/SGOT 22.0 U/L (15-37); BILIRUBIN TOTAL 0.59 mg/dL (0.3-1.2); BUN CREA RATIO 25.0 (7.0-25.0); CHOL HDL RATIO 2.9 (0-5.0); CREATININE SERUM 0.59 mg/dL (0.55-1.02); GFR 100.19; GLOBULINA 3.6 G/DL (2.4-3.5); GLUCOSE FASTING 126.0 mg/dL (65-100); HDL 44.0 mg/dl (40-60); LDL 61.0 mg/dl (0-130); OSMOLALITY SERUM 280.0 MOSM/KG (275-295); VLDL 23.0 (0-39)
[2024-12-06 05:07] LABS: COMPLEMENT C3 127 mg/dL (82-167)
[2024-12-06 13:08] LABS: DNA AB DOUBLE STRABDED 7 IU/mL (0-9)
== END 2024-12-04 07:17 | disposition home or self-care (01) ==
LOC: LAB 07:13
PROVIDERS: ATTEND Specialist
DX: M32.19 Other organ or system involvement in systemic lupus erythematosus (principal); E11.21 Type 2 diabetes mellitus with diabetic nephropathy; N39.9 Disorder of urinary system, unspecified; E78.2 Mixed hyperlipidemia; D64.9 Anemia, unspecified; E11.65 Type 2 diabetes mellitus with hyperglycemia; N39.0 Urinary tract infection, site not specified

== ENCOUNTER → 2025-03-19 07:04 | Outpatient (CLI) | payer OTHER ==
[2025-03-19 08:28] LABS: BASO % 0.0 % (0.1-1.2); EOS # 0.01 (0.04-0.54); EOS % 0.3 % (0.7-7.0); LYMPH # 1.22 (1.18-3.74); LYMPH % 31.2 % (19.3-53.1); MEAN PLATELET VOLUME 11.30 fl (9.4-12.4); MONO # 0.45 (0.24-0.82); MONO % 11.5 % (4.7-12.5); NEUT # 2.22 (1.56-6.13); NEUT % 56.7 % (34.0-71.1); RED CELL DISTRIBUTION WIDTH 12.9 % (11.6-14.4)
[2025-03-19 08:43] LABS: URINE APPEARANCE Clear; URINE BILIRRUBIN Negative (NEGATIVE); URINE BLOOD Negative; URINE COLOR Yellow; URINE GLUCOSE Negative (NEGATIVE); URINE KETONE Negative (NEGATIVE); URINE LEUKOCYTE Moderate; URINE NITRATE Negative; URINE PROTEIN Negative (NEGATIVE); URINE UROBILINOGEN 0.2 E.U./dl
[2025-03-19 08:47] LABS: URINE BACTERIA 68.3 uL (0.0-1933); URINE EPITHELIAL CELLS 19.5 uL (0.0-38.8); URINE RBC 2.6 uL (0.0-20.8); URINE WBC 44.8 uL (0.0-23.2)
[2025-03-19 08:54] LABS: CREATININE URINE RANDOM 28.20 MG/DL (30-125)
[2025-03-19 09:12] LABS: URINE CAST 0.00 uL (0.0-1.40)
[2025-03-19 09:50] LABS: ALT/SGPT 26.0 U/L (12-78); AST/SGOT 16.0 U/L (15-37); BILIRUBIN TOTAL 0.53 mg/dL (0.3-1.2); BUN CREA RATIO 17.0 (7.0-25.0); CHOL HDL RATIO 3.8 (0-5.0); CREATININE SERUM 0.64 mg/dL (0.55-1.02); FREE TRIODOTIRONINE 2.37 pg/ml (2.18-3.98); GFR 90.96; GLOBULINA 3.7 G/DL (2.4-3.5); GLUCOSE FASTING 134.0 mg/dL (65-100); HDL 42.0 mg/dl (40-60); LDL 92.0 mg/dl (0-130); OSMOLALITY SERUM 281.0 MOSM/KG (275-295); T4 FREE 1.11 NG/ML (0.76-1.46); TSH 3.94 uIU/mL (0.358-3.74); VLDL 26.0 (0-39)
[2025-03-20 12:07] LABS: COMPLEMENT C3 130 mg/dL (82-167); COMPLEMENT C4 14 mg/dL (12-38); DNA AB DOUBLE STRABDED 15 IU/mL (0-9)
== END | disposition home or self-care (01) ==
LOC: LAB 07:04
PROVIDERS: ATTEND Specialist
DX: E03.9 Hypothyroidism, unspecified (principal); N39.9 Disorder of urinary system, unspecified; E78.2 Mixed hyperlipidemia; Z12.11 Encounter for screening for malignant neoplasm of colon; D64.9 Anemia, unspecified; E11.65 Type 2 diabetes mellitus with hyperglycemia; M32.10 Systemic lupus erythematosus, organ or system involvement unspecified; N39.0 Urinary tract infection, site not specified; M32.19 Other organ or system involvement in systemic lupus erythematosus

== ENCOUNTER → 2025-03-20 10:20 | Outpatient (CLI) | payer OTHER ==
[2025-03-20 11:25] LABS: ob NEGATIVE (NEGATIVE)
== END | disposition home or self-care (01) ==
LOC: LAB 10:20
PROVIDERS: ATTEND Specialist
DX: E03.9 Hypothyroidism, unspecified (principal); E11.65 Type 2 diabetes mellitus with hyperglycemia; N39.9 Disorder of urinary system, unspecified; E78.2 Mixed hyperlipidemia; Z12.11 Encounter for screening for malignant neoplasm of colon; D64.9 Anemia, unspecified